=== PATIENT | male | born 1995 | race Caucasian/White ===

== ENCOUNTER 2018-07-27 15:46 | Emergency (ER) | payer OTHER, BC ==
[~2018-07-27] VITALS: Ht 187.9 cm; Wt 99.8 kg
[~2018-07-27 15:46] MED LIST: MOTRIN400 MG PO
[2018-07-27 15:47] VITALS: BP 150/77
[2018-07-28 08:08] LABS: HEPATITIS B SURFACE AG Negative (Negative); HEPATITIS C AB <0.1 (0.0-0.9)
== END 2018-07-27 16:18 | disposition home or self-care (01) ==
LOC: ED 15:46
PROVIDERS: Nurse Practitioner Family
DX: Z77.21 Contact with and (suspected) exposure to potentially hazardous body fluids (principal)

== ENCOUNTER → 2020-10-16 | Outpatient (CLI) | payer BC | END | disposition home or self-care (01) | LOC: COVID19 15:52 | PROVIDERS: ATTEND Internal Medicine | DX: U07.1 COVID-19 (principal) ==